=== PATIENT | male | born 1990 | race Two or more races ===

== ENCOUNTER 2019-05-26 00:12 | Emergency (ER) | payer OTHER ==
[~2019-05-26] VITALS: Ht 180.3 cm; Wt 81.6 kg
[2019-05-26 02:00] LABS: Urine Bacteria FEW /hpf (None Seen); Urine Blood Negative /uL (Negative); Urine Mucus FEW (None Seen); Urine Specific Gravity 1.035 (1.001-1.035); Urine WBC 1 /hpf (0 - 3)
[2019-05-26 02:42] LABS: Hematocrit 43.2 % (41.0-53.0); Mean Corpuscular Hemoglobin 30.3 pg (28.0-32.0); Mean Corpuscular Hgb Conc. 34.8 g/dL (32.0-36.0); Platelet Count (auto) 190 10^3/uL (140-450); Red Blood Cells 4.96 10^6/uL (4.5-5.90); Red Cell Distribution Width 13.4 % (11.8-14.3); White Blood Cell 9.7 10^3/uL (4.4-10.8)
[2019-05-26 02:47] LABS: Basophils % (manual) 0 (0.0-2.0); Blast Cells 0; Metamyelocytes % 0; Myelocytes % 0; Promyelocytes % 0
[2019-05-26 02:58] LABS: INR 1.01 (0.9-1.15); Partial Thromboplastin Time 28.2 sec (23.64-32.05)
[2019-05-26 03:03] LABS: Albumin 3.7 g/dL (3.4-5.0); BUN/Creatinine Ratio 14.4; Calcium 8.5 mg/dL (8.5-10.1); Potassium 3.5 mmol/L (3.5-5.1)
[2019-05-26 03:05] LABS: Bilirubin, Total 0.5 mg/dL (0.2-1.0); Total Protein 7.3 g/dL (6.4-8.2)
[2019-05-26 03:31] LABS: Band Neutrophils % (manual) 8; Eosinophils % (manual) 1 (0-7); Lymphocytes % (manual) 56 (10.0-50.0); Monocytes % (manual) 5 (0-12); Reactive Lymphocytes 3
[2019-05-26 08:10] VITALS: BP 115/72
== END 2019-05-26 09:19 | disposition home or self-care (01) ==
LOC: ER 00:15
DX: I83.92 Asymptomatic varicose veins of left lower extremity (principal); F17.210 Nicotine dependence, cigarettes, uncomplicated; F12.10 Cannabis abuse, uncomplicated
CPT/HCPCS: 36415; 73700; 80053; 81001; 85007; 85027; 85610; 85730; 93971

== ENCOUNTER 2020-05-15 08:19 | Emergency (ER) | payer MEDICAID, OTHER ==
[~2020-05-15] VITALS: Ht 180.3 cm; Wt 90.7 kg
[2020-05-15 08:36] VITALS: BP 150/92
[2020-05-15] MEDS ORDERED: EPINEPHrine HCL 1 MG/1 ML AMP SC ONE (09:45)
[2020-05-15] MEDS ORDERED: diphenhdrAMINE HCL 50 MG/1 ML VL IM ONE (09:45)
[2020-05-15] MEDS ORDERED: methylPREDNISolone SOD SUCC 125 MG/2 ML VL IM ONE (09:45)
== END 2020-05-15 10:40 | disposition home or self-care (01) ==
LOC: ER 08:19
DX: T78.40XA Allergy, unspecified, initial encounter (principal); F17.210 Nicotine dependence, cigarettes, uncomplicated; F12.10 Cannabis abuse, uncomplicated; J45.909 Unspecified asthma, uncomplicated; X58.XXXA Exposure to other specified factors, initial encounter
CPT/HCPCS: 96372; 99284; J0171; J1200; J2930